=== PATIENT | female | born 1995 | race Two or more races ===

== ENCOUNTER 2018-08-19 10:37 | Emergency (ER) | payer SELFPAY ==
[~2018-08-19] VITALS: Ht 154.9 cm; Wt 52.2 kg
[2018-08-19] MEDS ORDERED: IV NORMAL SALINE 1000ML BAG 1,000 ML IV SCH (10:56)
[2018-08-19] MEDS ORDERED: fentaNYL PF VIAL 100 MCG/2 ML VIAL IV ONE (11:00)
[2018-08-19] MEDS ORDERED: MORPHINE SULFATE 2 MG/ML VIAL. IV/SQ PRN (11:00)
[2018-08-19] MEDS ORDERED: ONDANSETRON PF 4 MG/2 ML VIAL. IV ONE (11:00)
--- NOTE | 2018-08-19 11:04 | PHYS DOC ---
Adult General Chief Complaint Chief Complaint: ABDOMINAL PAIN HPI HPI Patient is a 22-year-old female who presents with complaint of right upper quadrant abdominal pain for the last couple of days. Patient reports that she does have some discomfort with urination and states the pain is worsened when she urinates. She states the pain radiates into her back. She is unable to quantify her pain other than to say it hurts a lot. She has had no vomiting or diarrhea. She also has had no fever. Review of Systems Review of Systems Constitutional: Denies fever or chills [] Respiratory: Denies cough or shortness of breath [] Cardiovascular: Denies chest pain[] GI: [place] of right upper quadrant abdominal pain[] : Complains of dysuria[] Musculoskeletal: Complains of right-sided back pain[] All other systems were reviewed and found to be within normal limits, except as documented in this note. Current Medications Current Medications Current Medications Medications (Trade) Dose Ordered Sig/Merary Start Time Stop Time Status Last Admin Dose Admin Ceftriaxone Sodium 50 ml @ 100 mls/hr 1X ONCE 08/19/18 12:00 08/19/18 12:29 DC 08/19/18 12:00 100 MLS/HR Fentanyl Citrate (Fentanyl 2ml Vial) 25 mcg 1X ONCE 08/19/18 11:00 08/19/18 11:25 DC 08/19/18 11:00 25 MCG Morphine Sulfate (Morphine Sulfate) 2 mg PRN Q15MIN PRN 08/19/18 11:00 08/20/18 10:59 08/19/18 11:43 2 MG Ondansetron HCl (Zofran) 4 mg 1X ONCE 08/19/18 11:00 08/19/18 11:25 DC 08/19/18 11:00 4 MG Sodium Chloride 1,000 ml @ 1,000 mls/hr Q1H 08/19/18 10:56 08/19/18 11:55 DC 08/19/18 10:56 1,000 MLS/HR Allergies Allergies Allergies Coded Allergies Type Severity Reaction Last Updated Verified No Known Drug Allergies 08/19/18 No Physical Exam Physical Exam Constitutional: Well developed, well nourished, appears uncomfortable. [] HENT: Normocephalic, atraumatic, bilateral external ears normal, oropharynx moist, no oral exudates, nose normal. [] Eyes: PERRLA, EOMI, conjunctiva normal, no discharge. [] Neck: Normal range of motion, no tenderness, supple, no stridor. [] Cardiovascular:Heart rate regular rhythm [] Lungs & Thorax: Bilateral breath sounds clear to auscultation [] Abdomen: Bowel sounds normal, soft, with moderate tenderness to palpation right upper quadrant. [] Skin: Warm, dry, no erythema, no rash. [] Back: There is right-sided CVA tenderness. [] Extremities: No tenderness, no cyanosis, no clubbing, ROM intact, no edema. [] Neurologic: Alert and oriented X 3, normal motor function, normal sensory function, no focal deficits noted. [] Current Patient Data Vital Signs Vital Signs Date Time Temp Pulse Resp B/P (MAP) Pulse Ox O2 Delivery O2 Flow Rate FiO2 08/19/18 12:47 60 16 108/75 (86) 100 Room Air 08/19/18 10:45 98.1 98.0 98.1 Lab Values Laboratory Tests Test 08/19/18 10:59 08/19/18 11:05 POC Urine HCG, Qualitative Hcg negative (Negative) White Blood Count 8.2 x10^3/uL (4.0-11.0) Red Blood Count 4.74 x10^6/uL (3.50-5.40) Hemoglobin 13.2 g/dL (12.0-15.5) Hematocrit 39.7 % (36.0-47.0) Mean Corpuscular Volume 84 fL (79-100) Mean Corpuscular Hemoglobin 28 pg (25-35) Mean Corpuscular Hemoglobin Concent 33 g/dL (31-37) Red Cell Distribution Width 15.4 % (11.5-14.5) H Platelet Count 258 x10^3/uL (140-400) Neutrophils (%) (Auto) 67 % (31-73) Lymphocytes (%) (Auto) 25 % (24-48) Monocytes (%) (Auto) 7 % (0-9) Eosinophils (%) (Auto) 1 % (0-3) Basophils (%) (Auto) 0 % (0-3) Neutrophils # (Auto) 5.5 x10^3uL (1.8-7.7) Lymphocytes # (Auto) 2.0 x10^3/uL (1.0-4.8) Monocytes # (Auto) 0.6 x10^3/uL (0.0-1.1) Eosinophils # (Auto) 0.1 x10^3/uL (0.0-0.7) Basophils # (Auto) 0.0 x10^3/uL (0.0-0.2) Urine Collection Type Unknown Urine Color Yellow Urine Clarity Clear Urine pH 6.0 Urine Specific [place] 1.020 Urine Protein Negative mg/dL (NEG-TRACE) Urine Glucose (UA) Negative mg/dL (NEG) Urine Ketones (Stick) Negative mg/dL (NEG) Urine Blood Moderate (NEG) Urine Nitrite Positive (NEG) Urine Bilirubin Negative (NEG) Urine Urobilinogen Dipstick 0.2 mg/dL (0.2 mg/dL) Urine Leukocyte Esterase Large (NEG) Urine RBC 3-5 /HPF (0-2) Urine WBC 11-20 /HPF (0-4) Urine Squamous Epithelial Cells Mod /LPF Urine Bacteria Many /HPF (0-FEW) Urine Mucus Mod /LPF Sodium Level 141 mmol/L (136-145) Potassium Level 3.7 mmol/L (3.5-5.1) Chloride Level 103 mmol/L (98-107) Carbon Dioxide Level 26 mmol/L (21-32) Anion Gap 12 (6-14) Blood Urea Nitrogen 10 mg/dL (7-20) Creatinine 0.6 mg/dL (0.6-1.0) Estimated GFR (Cockcroft-Gault) 126.2 BUN/Creatinine Ratio 17 (6-20) Glucose Level 83 mg/dL (70-99) Calcium Level 9.0 mg/dL (8.5-10.1) Total Bilirubin 0.5 mg/dL (0.2-1.0) Aspartate Amino Transferase (AST) 15 U/L (15-37) Alanine Aminotransferase (ALT) 19 U/L (14-59) Alkaline Phosphatase 72 U/L (46-116) Total Protein 8.2 g/dL (6.4-8.2) Albumin 4.2 g/dL (3.4-5.0) Albumin/Globulin Ratio 1.1 (1.0-1.7) Lipase 142 U/L (73-393) Laboratory Tests 08/19/18 11:05 Laboratory Tests 08/19/18 11:05 EKG EKG [] Radiology/Procedures Radiology/Procedures [] Impressions: Gallbladder ultrasound demonstrates no acute abnormalities. Report for CT abdomen and pelvis reviewed. Patient's abdomen reexamined and patient has no tenderness to palpation at McBurney's point. There is no rebound tenderness/ peritoneal signs. Course & Med Decision Making Course & Med Decision Making Pertinent Labs and Imaging studies reviewed. (See chart for details) [] Dragon Disclaimer Dragon Disclaimer This electronic medical record was generated, in whole or in part, using a voice recognition dictation system. Departure Departure Impression: Primary Impression: Urinary tract infection Disposition: HOME, SELF-CARE Condition: STABLE Patient Instructions: Urinary Tract Infection Scripts Tramadol Hcl (TRAMADOL HCL) 50 Mg Tablet 50 MG PO Q6HRS PRN for PAIN for 3 Days, #12 TAB Prov: CLARKE MCNEILL Jr. DO 08/19/18 Phenazopyridine Hcl (PHENAZOPYRIDINE HCL) 100 Mg Tablet 1 TAB PO TID, #9 TAB Prov: CLARKE MCNEILL Jr. DO 08/19/18 Ciprofloxacin Hcl (CIPRO) 500 Mg Tablet 1 TAB PO BID, #20 TAB Prov: CLARKE MCNEILL Jr. DO 08/19/18 Problem Qualifiers Primary Impression: Urinary tract infection Urinary tract infection type: site unspecified Hematuria presence: with hematuria Qualified Codes: N39.0 - Urinary tract infection, site not specified ; R31.9 - Hematuria, unspecified CLARKE MCNEILL Jr. DO Aug 19, 2018 11:04
[2018-08-19 11:11] LABS: BASO % 0 % (0-3); EOS # 0.1 x10^3/uL (0.0-0.7); EOS % 1 % (0-3); HEMATOCRIT 39.7 % (36.0-47.0); HEMOGLOBIN 13.2 g/dL (12.0-15.5); LYMPH % 25 % (24-48); MEAN CORPUSCULAR HEMOGLOBIN 28 pg (25-35); MEAN CORPUSCULAR HGB CONC 33 g/dL (31-37); MEAN CORPUSCULAR VOLUME 84 fL (79-100); MONO # 0.6 x10^3/uL (0.0-1.1); MONO % 7 % (0-9); NEUT # 5.5 x10^3uL (1.8-7.7); NEUT % 67 % (31-73); PLATELET COUNT 258 x10^3/uL (140-400); RED BLOOD COUNT 4.74 x10^6/uL (3.50-5.40); RED CELL DISTRIBUTION WIDTH 15.4 % (11.5-14.5); WHITE BLOOD COUNT 8.2 x10^3/uL (4.0-11.0)
[2018-08-19 11:12] LABS: BILIRUBIN,URINE NEGATIVE (NEG); CLARITY,URINE CLEAR; COLOR,URINE YELLOW; NITRITE,URINE POSITIVE (NEG); PROTEIN,URINE NEGATIVE (NEG-TRACE); UROBILINOGEN,URINE 0.2 mg/dL (0.2 mg/dL)
[2018-08-19 11:26] LABS: CREATININE 0.6 mg/dL (0.6-1.0); GFR 126.2; POTASSIUM 3.7 mmol/L (3.5-5.1)
[2018-08-19 11:28] LABS: BACTERIA,URINE MANY /HPF (0-FEW); SQUAMOUS EPITHELIAL CELL,UR MOD /LPF
[2018-08-19 11:31] LABS: ALBUMIN 4.2 g/dL (3.4-5.0); ALBUMIN/GLOBULIN RATIO 1.1 (1.0-1.7); TOTAL BILIRUBIN 0.5 mg/dL (0.2-1.0); TOTAL PROTEIN 8.2 g/dL (6.4-8.2)
--- NOTE | 2018-08-19 12:18 | RAD ---
ABDOMEN LTD History: Right upper quadrant abdominal pain Comparison: None. Findings: Multiple sonographic images of the abdomen are submitted. There is no abnormality of the visualized pancreas, tail not as well-visualized due to bowel gas. There is segmental visualization of the inferior vena cava. Abdominal aortic caliber is within normal limits up to 1.6 cm. Hepatic echotexture is within normal limits. Right lobe of the liver measured 15.3 cm longitudinal. Common bile duct is within normal limits at 0.4 cm. Gallbladder is present without intraluminal abnormality, wall thickening, pericholecystic fluid. Right kidney measured 10.9 x 3.6 x 5.3 cm, no hydronephrosis. No free fluid is demonstrated. Impression: 1. No significant abnormality is demonstrated. Electronically signed by: Montser Horton MD (08/19/2018 12:16 PM) [id number]
--- NOTE | 2018-08-19 13:07 | RAD ---
Examination: CT of the abdomen pelvis without contrast HISTORY: History of right upper quadrant pain with urination COMPARISON: None available TECHNIQUE: Axial CT images of the abdomen pelvis were performed without contrast. Coronal and sagittal reformats are performed Exposure: One or more of the following individualized dose reduction techniques were utilized for this examination: 1. Automated exposure control 2. Adjustment of the mA and/or kV according to patient size 3. Use of iterative reconstruction technique FINDINGS: Evaluation of the solid organs is limited lack of IV contrast. The evaluation of bowel is limited lack of oral contrast The bibasilar lungs are clear. No evidence of free air identified in the abdomen. The visualized noncontrasted liver, spleen, adrenals grossly appears unremarkable The gallbladder is mildly distended. The stomach is mildly distended. The visualized pancreas grossly appears unremarkable. The small bowel is nondilated. There is questionable mild fat stranding identified about the terminal ileum in the right lower quadrant. The partially visualized appendix appears unremarkable. The stranding appears to abut the appendix, however there is air within the appendix. Feces and gas noted in the colon. Urinary bladder is mildly distended. No evidence of intrarenal collecting system calculi or hydronephrosis. A small amount of free fluid identified in the pelvis. Prominent appearing left adnexa. No evidence of lytic bony destructive lesion. IMPRESSION: 1. No evidence of intrarenal collecting system calculi or hydronephrosis. 2. Questionable minimal fat stranding identified about the terminal ileum the right lower quadrant, nonspecific could be mild enteritis. The fat stranding appears to abut the appendix, however the appendix grossly appears unremarkable. 3. Prominent appearing left adnexa, evaluation limited without IV contrast. Ultrasound pelvis may be useful for further evaluation if this is a clinical concern. Electronically signed by: Kevin Padgett MD (08/19/2018 1:04 PM) [place] [id number]
[2018-08-19] MEDS ORDERED: PHEN-443 PO (13:26)
[2018-08-19] MEDS ORDERED: TRAM50TA PO (13:26)
[2018-08-19] MEDS ORDERED: CIPR500T94 PO (13:26)
[2018-08-19 13:49] VITALS: BP 106/70
== END 2018-08-19 13:49 | disposition home or self-care (01) ==
LOC: ER 10:37
DX: N39.0 Urinary tract infection, site not specified (principal); R31.9 Hematuria, unspecified; M54.9 Dorsalgia, unspecified; R10.11 Right upper quadrant pain
CPT/HCPCS: 36415; 74176; 76705; 80053; 81001; 81025; 83690; 85025; 96365; 96375; 99285; J0690; J2270; J2405; J3010; J7030

== ENCOUNTER 2019-05-19 19:30 | Emergency (ER) | payer SELFPAY ==
[~2019-05-19] VITALS: Ht 154.9 cm; Wt 50.8 kg
[~2019-05-19 19:30] MED LIST: CIPR500T94 PO; PHEN-443 PO; TRAM50TA PO
[2019-05-19 20:19] LABS: BILIRUBIN,URINE NEGATIVE (NEG); CLARITY,URINE CLEAR; COLOR,URINE YELLOW; NITRITE,URINE NEGATIVE (NEG); PROTEIN,URINE NEGATIVE (NEG-TRACE)
[2019-05-19 20:23] LABS: BASO % 1 % (0-3); EOS # 0.1 x10^3/uL (0.0-0.7); EOS % 1 % (0-3); HEMATOCRIT 37.8 % (36.0-47.0); HEMOGLOBIN 12.8 g/dL (12.0-15.5); LYMPH # 2.6 x10^3/uL (1.0-4.8); LYMPH % 37 % (24-48); MEAN CORPUSCULAR HEMOGLOBIN 30 pg (25-35); MEAN CORPUSCULAR HGB CONC 34 g/dL (31-37); MEAN CORPUSCULAR VOLUME 88 fL (79-100); MONO # 0.6 x10^3/uL (0.0-1.1); MONO % 9 % (0-9); NEUT # 3.7 x10^3/uL (1.8-7.7); NEUT % 53 % (31-73); PLATELET COUNT 229 x10^3/uL (140-400); RED BLOOD COUNT 4.29 x10^6/uL (3.50-5.40)
[2019-05-19 20:28] LABS: BACTERIA,URINE FEW /HPF (0-FEW); SQUAMOUS EPITHELIAL CELL,UR MANY /LPF; WBC,URINE OCC /HPF (0-4)
[2019-05-19 20:37] LABS: CALCIUM 8.8 mg/dL (8.5-10.1); CREATININE 0.5 mg/dL (0.6-1.0); GFR 154.3
[2019-05-19 20:43] LABS: ALBUMIN 4.1 g/dL (3.4-5.0); ALBUMIN/GLOBULIN RATIO 1.2 (1.0-1.7); TOTAL BILIRUBIN 0.4 mg/dL (0.2-1.0); TOTAL PROTEIN 7.5 g/dL (6.4-8.2)
--- NOTE | 2019-05-19 22:22 | RAD ---
Obstetrical ultrasound less than 14 weeks transabdominal and transvaginal imaging. HISTORY: Vaginal bleeding, Transabdominal ultrasound was performed. Bladder was not distended. Uterus is retroflexed. There is fluid in the endometrial canal but uterus is poorly evaluated. Right ovary may have been identified. Left ovary was not identified. Transvaginal imaging was performed for further evaluation. There is retroflexion of the uterus. There is fluid in the endometrial canal. Blood clots are most likely although retained products of conception are possible. A normal gestational sac is not identified. A yolk sac or pole was not identified. There is no uterine mass. Left ovary was normal measuring 2.6 x 3.3 x 1.6 cm. There is flow in the left ovary with color imaging and Doppler. There are small follicles in the left ovary. There is a small amount of free fluid in the cul-de-sac. Right ovary was normal measuring 2.6 x 2.6 x 1.1 cm. There are small follicles in the right ovary. IMPRESSION: 1. Normal ovaries. 2. Trace of free fluid in cul-de-sac. 3. No other adnexal mass noted. 4. Abnormal gestational sac versus blood products in the endometrium. A normal pole or yolk sac was not identified. Electronically signed by: Guillaume Friedman MD (05/19/2019 10:19 PM) [facility]
--- NOTE | 2019-05-19 22:50 | PHYS DOC ---
Past Medical History Past Medical History: No Pertinent History Past Surgical History: No Surgical History Alcohol Use: None Drug Use: None Adult General Chief Complaint Chief Complaint: ABDOMINAL PAIN IN HPI HPI 23-year-old female presents to ER for complaints of vaginal bleeding and lower abdominal cramping. Patient reports symptoms started this afternoon. Patient denies any fall, trauma, or recent sexual intercourse. She denies any dizziness or lightheadedness. Pt denies fever, nausea or vomiting, or urinary symptoms. Patient's LMP was 04/04/19. This makes her 3 para 2. Review of Systems Review of Systems Constitutional: Denies fever or chills [] Respiratory: Denies cough or shortness of breath [] Cardiovascular: No additional information not addressed in HPI [] GI: Denies nausea, vomiting, bloody stools or diarrhea. Reports mid suprapubic cramping : Denies dysuria. Reports vaginal bleeding Musculoskeletal: Denies back pain or joint pain [] Integument: Denies rash or skin lesions [] Neurologic: Denies headache, focal weakness or sensory changes [] All other systems were reviewed and found to be within normal limits, except as documented in this note. Allergies Allergies Allergies Coded Allergies Type Severity Reaction Last Updated Verified No Known Drug Allergies 08/19/18 No Physical Exam Physical Exam Constitutional: Well developed, well nourished, no acute distress, non-toxic appearance. [] HENT: Normocephalic, atraumatic, oropharynx moist, nose normal. [] Eyes: Pupils equal, conjunctiva normal, no discharge. [] Neck: Normal range of motion, no tenderness, supple, no stridor. [] Cardiovascular: Heart rate regular rhythm, no murmur [] Lungs & Thorax: Bilateral breath sounds clear to auscultation- resp. equal/nonlabored Abdomen: Bowel sounds normal, soft- no distention/rigidity, tender suprapubic ar ea, no masses, no pulsatile masses. [] Skin: Warm, dry, no erythema, no rash. [] Back: No tenderness, no CVA tenderness. [] Extremities: No tenderness, no cyanosis, no clubbing, ROM intact, no edema. [] Neurologic: Alert and oriented X 3, normal motor function, normal sensory function, no focal deficits noted. [] Psychologic: Affect normal, judgement normal, mood normal. [] Pelvic Exam: RN Sand Hauler present 2239 Abdomen: Tender mid suprapubic area- no distention/rigidity External Genitalia: Normal Skin- no rash/lesions Speculum: Normal vaginal mucosa, dark blood in vaginal vault no clots/tissue. Cervical os closed Current Patient Data Vital Signs Vital Signs Date Time Temp Pulse Resp B/P (MAP) Pulse Ox O2 Delivery O2 Flow Rate FiO2 05/19/19 23:13 78 114/70 (85) 98 Room Air 05/19/19 21:13 20 05/19/19 19:45 98.1 98.1 Lab Values Laboratory Tests Test 05/19/19 20:03 05/19/19 20:08 05/19/19 20:15 Urine Collection Type Unknown Urine Color Yellow Urine Clarity Clear Urine pH 6.0 Urine Specific [place] 1.025 Urine Protein Negative mg/dL (NEG-TRACE) Urine Glucose (UA) Negative mg/dL (NEG) Urine Ketones (Stick) Negative mg/dL (NEG) Urine Blood Large (NEG) Urine Nitrite Negative (NEG) Urine Bilirubin Negative (NEG) Urine Urobilinogen Dipstick 1.0 mg/dL (0.2 mg/dL) Urine Leukocyte Esterase Negative (NEG) Urine RBC 11-20 /HPF (0-2) Urine WBC Occ /HPF (0-4) Urine Squamous Epithelial Cells Many /LPF Urine Bacteria Few /HPF (0-FEW) Urine Mucus Marked /LPF POC Urine HCG, Qualitative Hcg positive (Negative) White Blood Count 7.0 x10^3/uL (4.0-11.0) Red Blood Count 4.29 x10^6/uL (3.50-5.40) Hemoglobin 12.8 g/dL (12.0-15.5) Hematocrit 37.8 % (36.0-47.0) Mean Corpuscular Volume 88 fL (79-100) Mean Corpuscular Hemoglobin 30 pg (25-35) Mean Corpuscular Hemoglobin Concent 34 g/dL (31-37) Red Cell Distribution Width 14.0 % (11.5-14.5) Platelet Count 229 x10^3/uL (140-400) Neutrophils (%) (Auto) 53 % (31-73) Lymphocytes (%) (Auto) 37 % (24-48) Monocytes (%) (Auto) 9 % (0-9) Eosinophils (%) (Auto) 1 % (0-3) Basophils (%) (Auto) 1 % (0-3) Neutrophils # (Auto) 3.7 x10^3/uL (1.8-7.7) Lymphocytes # (Auto) 2.6 x10^3/uL (1.0-4.8) Monocytes # (Auto) 0.6 x10^3/uL (0.0-1.1) Eosinophils # (Auto) 0.1 x10^3/uL (0.0-0.7) Basophils # (Auto) 0.0 x10^3/uL (0.0-0.2) Maternal Serum HCG Beta Subunit 511 mIU/mL (0-5) H Sodium Level 142 mmol/L (136-145) Potassium Level 4.0 mmol/L (3.5-5.1) Chloride Level 104 mmol/L (98-107) Carbon Dioxide Level 25 mmol/L (21-32) Anion Gap 13 (6-14) Blood Urea Nitrogen 10 mg/dL (7-20) Creatinine 0.5 mg/dL (0.6-1.0) L Estimated GFR (Cockcroft-Gault) 154.3 BUN/Creatinine Ratio 20 (6-20) Glucose Level 88 mg/dL (70-99) Calcium Level 8.8 mg/dL (8.5-10.1) Total Bilirubin 0.4 mg/dL (0.2-1.0) Aspartate Amino Transferase (AST) 19 U/L (15-37) Alanine Aminotransferase (ALT) 20 U/L (14-59) Alkaline Phosphatase 77 U/L (46-116) Total Protein 7.5 g/dL (6.4-8.2) Albumin 4.1 g/dL (3.4-5.0) Albumin/Globulin Ratio 1.2 (1.0-1.7) Laboratory Tests 05/19/19 20:15 Laboratory Tests 05/19/19 20:15 Microbiology 05/19/19 Wet Prep - Final, Complete EKG EKG [] Radiology/Procedures Radiology/Procedures PROCEDURE: OB <14 WKS W/TV Obstetrical ultrasound less than 14 weeks transabdominal and transvaginal imaging. HISTORY: Vaginal bleeding, Transabdominal ultrasound was performed. Bladder was not distended. Uterus is retroflexed. There is fluid in the endometrial canal but uterus is poorly evaluated. Right ovary may have been identified. Left ovary was not identified. Transvaginal imaging was performed for further evaluation. There is retroflexion of the uterus. There is fluid in the endometrial canal. Blood clots are most likely although retained products of conception are possible. A normal gestational sac is not identified. A yolk sac or pole was not identified. There is no uterine mass. Left ovary was normal measuring 2.6 x 3.3 x 1.6 cm. There is flow in the left ovary with color imaging and Doppler. There are small follicles in the left ovary. There is a small amount of free fluid in the cul-de-sac. Right ovary was normal measuring 2.6 x 2.6 x 1.1 cm. There are small follicles in the right ovary. IMPRESSION: 1. Normal ovaries. 2. Trace of free fluid in cul-de-sac. 3. No other adnexal mass noted. 4. Abnormal gestational sac versus blood products in the endometrium. A normal pole or yolk sac was not identified. Electronically signed by: Bharat Zavala MD (05/19/2019 10:19 PM) [facility] DICTATED and SIGNED BY: BHARAT ZAVALA MD DATE: 05/19/190 Course & Med Decision Making Course & Med Decision Making Pertinent Labs and Imaging studies reviewed. (See chart for details) Pt was evaluated in the ER for complaints of vaginal bleeding and having multiple home tests which were positive. On labs patient had hCG quantitative of 511. H&H was stable at 12.8/37.8. UA was negative for nitrates and leukocytes. Patient had O+ blood type so she was not a [place] candidate. OB ultrasound with report "Abnormal gestational sac versus blood products in the endometrium. A normal pole or yolk sac was not identified". On vaginal exam cervical os was closed- patient had small amount of dark red blood in vaginal vault no clots or tissue. Wet mount with clue cells. GC and chlamydia pending at time of discharge with patient voicing no concerns for STDs. Patient was advised of test results, strict vaginal/pelvic rest, and need for repeat hCG quantitative in 48 hours with her MEDICATION CARE MANAGER and/or returning to ER for recheck of level. Patient denies increased lower abdominal pain and has been nontoxic in appearance while in the ER. Vital signs were stable.Education provided on signs and symptoms to return to ER. Discharge instructions were discussed. Translation phone was used for communication during ER visit as patient spoke Cam[place]onian. Karina Disclaimer Karina Disclaimer This electronic medical record was generated, in whole or in part, using a voice recognition dictation system. Departure Departure Impression: Primary Impression: Additional Impressions: Threatened miscarriage in early Bacterial vaginosis Disposition: HOME, SELF-CARE Condition: STABLE Referrals: NO PCP (PCP) Patient Instructions: Bacterial Vaginosis, Threatened Miscarriage Additional Instructions: It is important for you to have your level rechecked in 48 hours. Call your MEDICATION CARE MANAGER office and inform them that you were in the emergency department for vaginal bleeding and the ear need this rechecked. Your HCG quantitative ( level) was 511. No sexual intercourse or insertion of anything in your vagina until follow-up w ith your MEDICATION CARE MANAGER doctor. Drink plenty of water daily. Plenty of rest. Tylenol as directed on container for pain. Scripts Metronidazole (FLAGYL) 500 Mg Tablet 1 TAB PO BID, #14 TAB 0 Refills Prov: CATHERINE TRACY APRN 05/19/19 Problem Qualifiers CATHERINE TRACY APRN May 19, 2019 22:50
[2019-05-19] MEDS ORDERED: METR500T PO (23:01)
[2019-05-19 23:13] VITALS: BP 114/70
[2019-05-22 18:09] LABS: GC PROBE Negative (Negative)
[2019-05-24] MEDS ORDERED: OXYC1TAB15 PO (09:34)
[2019-05-24] MEDS ORDERED: NAPR-514 PO (09:34)
== END 2019-05-19 23:10 | disposition home or self-care (01) ==
LOC: ER 19:30
DX: O20.0 Threatened abortion (principal); O23.591 Infection of other part of genital tract in pregnancy, first trimester; B96.89 Other specified bacterial agents as the cause of diseases classified elsewhere; Z3A.00 Weeks of gestation of pregnancy not specified
CPT/HCPCS: 36415; 76801; 76817; 80053; 81001; 81025; 84702; 85025; 86900; 86901; 87491; 87591; 99285; Q0111

== ENCOUNTER 2021-06-04 15:16 | Emergency (ER) | payer SELFPAY ==
[~2021-06-04] VITALS: Ht 157.5 cm; Wt 54.0 kg
[~2021-06-04 15:16] MED LIST changes: +METR500T PO; +NAPR-514 PO; +OXYC1TAB15 PO
[2021-06-04 18:26] VITALS: BP 118/76
--- NOTE | 2021-06-04 18:32 | ED.ADGEN ---
Past Medical History Past Medical History: No Pertinent History Past Surgical History: No Surgical History Smoking Status: Never Smoker Alcohol Use: None Drug Use: None General Adult EDM: Chief Complaint: ABDOMINAL PAIN HPI: HPI: Patient is a 25 year old 25-year-old female coming in for left upper quadrant and epigastric abdominal pain. Patient states pain is worse with moving. Was seen in the clinic and given omeprazole but is not helping. Patient states is worse when she eats and has been having vomiting after eating. Patient denies any constipation or diarrhea. She denies any past medical history, medical surgical history of ectopic 2 years ago. Denies any tobacco, alcohol, or drugs. LMP 722. Patient has not received any Covid 19 vaccination. Review of Systems: Review of Systems: All other systems within normal limits except for as noted in the HPI Current Medications: Current Medications Medications (Trade) Dose Ordered Sig/Merary Start Time Stop Time Status Last Admin Dose Admin Info (CONTRAST GIVEN -- Rx MONITORING) 1 each PRN DAILY PRN 06/04/21 19:45 06/06/21 19:44 Iohexol (Omnipaque 300 Mg/ml) 75 ml 1X ONCE 06/04/21 19:30 06/04/21 19:31 DC 06/04/21 19:36 75 ML Multi-Ingredient Mouthwash/Gargle (Gi Cocktail) 20 ml 1X ONCE 06/04/21 18:45 06/04/21 18:46 DC 06/04/21 18:45 20 ML Ondansetron HCl (Zofran Odt) 4 mg 1X ONCE 06/04/21 19:45 06/04/21 19:46 DC 06/04/21 18:45 4 MG Allergies: Allergies: Allergies Coded Allergies Type Severity Reaction Last Updated Verified No Known Drug Allergies 08/19/18 No Physical Exam: PE: Constitutional: Well developed, well nourished, no acute distress, non-toxic appearance. [] HENT: Normocephalic, atraumatic, bilateral external ears normal, nose normal. [] Eyes: PERRLA, conjunctiva normal, no discharge. [] Neck: No rigidity, supple, no stridor. [] Cardiovascular: Regular rate and rhythm, brisk cap refill [] Lungs & Thorax: Non labored symmetric respirations, no tachypnea or respiratory distress [] Abdomen: Soft, nondistended, epigastric and left upper quadrant tenderness, no guarding or rebound. Skin: Warm, dry, no erythema, no rash. [] Back: Unremarkable Extremities: No deformities, range of motion grossly intact, no lower extremity edema [] Neurologic: Alert and oriented X 3, no focal deficits noted. [] Psychologic: Affect normal, judgement normal, mood normal. [] Current Patient Data: Labs: Laboratory Tests Test 06/04/21 18:30 06/04/21 18:32 06/04/21 18:52 Urine Collection Type Unknown Urine Color Yellow Urine Clarity Cloudy Urine pH 6.0 (<5.0-8.0) Urine Specific Salix >=1.030 (1.000-1.030) Urine Protein Negative mg/dL (NEG-TRACE) Urine Glucose (UA) Negative mg/dL (NEG) Urine Ketones (Stick) Negative mg/dL (NEG) Urine Blood Moderate (NEG) Urine Nitrite Negative (NEG) Urine Bilirubin Negative (NEG) Urine Urobilinogen Dipstick 1.0 mg/dL (0.2 mg/dL) Urine Leukocyte Esterase Moderate (NEG) Urine RBC 6-10 /HPF (0-2) Urine WBC >40 /HPF (0-4) Urine Squamous Epithelial Cells Many /LPF Urine Bacteria Moderate /HPF (0-FEW) Urine Mucus Marked /LPF POC Urine HCG, Qualitative Hcg negative (Negative) White Blood Count 8.1 x10^3/uL (4.0-11.0) Red Blood Count 4.53 x10^6/uL (3.50-5.40) Hemoglobin 13.5 g/dL (12.0-15.5) Hematocrit 39.4 % (36.0-47.0) Mean Corpuscular Volume 87 fL (79-100) Mean Corpuscular Hemoglobin 30 pg (25-35) Mean Corpuscular Hemoglobin Concent 34 g/dL (31-37) Red Cell Distribution Width 13.9 % (11.5-14.5) Platelet Count 272 x10^3/uL (140-400) Neutrophils (%) (Auto) 58 % (31-73) Lymphocytes (%) (Auto) 32 % (24-48) Monocytes (%) (Auto) 9 % (0-9) Eosinophils (%) (Auto) 1 % (0-3) Basophils (%) (Auto) 1 % (0-3) Neutrophils # (Auto) 4.7 x10^3/uL (1.8-7.7) Lymphocytes # (Auto) 2.6 x10^3/uL (1.0-4.8) Monocytes # (Auto) 0.7 x10^3/uL (0.0-1.1) Eosinophils # (Auto) 0.1 x10^3/uL (0.0-0.7) Basophils # (Auto) 0.0 x10^3/uL (0.0-0.2) Sodium Level 137 mmol/L (136-145) Potassium Level 3.9 mmol/L (3.5-5.1) Chloride Level 101 mmol/L (98-107) Carbon Dioxide Level 30 mmol/L (21-32) Anion Gap 6 (6-14) Blood Urea Nitrogen 10 mg/dL (7-20) Creatinine 0.6 mg/dL (0.6-1.0) Estimated GFR (Cockcroft-Gault) 122.8 BUN/Creatinine Ratio 17 (6-20) Glucose Level 84 mg/dL (70-99) Calcium Level 8.7 mg/dL (8.5-10.1) Total Bilirubin 0.4 mg/dL (0.2-1.0) Aspartate Amino Transferase (AST) 13 U/L (15-37) L Alanine Aminotransferase (ALT) 24 U/L (14-59) Alkaline Phosphatase 116 U/L (46-116) Total Protein 7.6 g/dL (6.4-8.2) Albumin 3.8 g/dL (3.4-5.0) Albumin/Globulin Ratio 1.0 (1.0-1.7) Lipase 243 U/L (73-393) Laboratory Tests 06/04/21 18:52 Laboratory Tests 06/04/21 18:52 Vital Signs: Vital Signs Date Time Temp Pulse Resp B/P (MAP) Pulse Ox O2 Delivery O2 Flow Rate FiO2 06/04/21 18:26 98.1 68 12 118/76 (72) 99 Room Air 98.1 EKG: EKG: [] Heart Score: C/O Chest Pain: No Risk Factors: Risk Factors: DM, Current or recent (<one month) smoker, HTN, HLP, family history of CAD, obesity. Risk Scores: Score 0 - 3: 2.5% MACE over next 6 weeks - Discharge Home Score 4 - 6: 20.3% MACE over next 6 weeks - Admit for Clinical Observation Score 7 - 10: 72.7% MACE over next 6 weeks - Early Invasive Strategies Radiology/Procedures: Radiology/Procedures: [facility] [address] [place] [address] IMAGING REPORT Signed PATIENT: NINA TREVIZO MACCOUNT: [id number] : 04/09/1996 LOCATION: ER AGE: 25 SEX: F EXAM STATUS: REG ER ORD. PHYSICIAN: KIRK LOPEZ MD REASON: LUQ, epigastric pain PROCEDURE: CT ABD PELV W/ IV CONTRST ONLY Exam: CT of abdomen and pelvis with contrast INDICATION: Left upper quadrant epigastric pain TECHNIQUE: Sequential axial images through the abdomen and pelvis obtained following the administration of 75 mL of Omni 300 IV contrast. Sagittal and coronal reformatted images were reconstructed from the axial data and reviewed. Exposure: One or more of the following in the visualized dose reduction techniq ues were utilized for this examination: 1. Automated exposure control 2. Adjustment of the MA and/or KV according to patient size 3. Use of iterative of reconstructive technique Comparisons: 08/19/2028 FINDINGS: Heart size is normal. No pericardial effusion. Visualized lung bases are clear. No pleural effusion. Liver, spleen, pancreas, gallbladder and adrenals are unremarkable. No perinephric inflammation or hydronephrosis. No renal or ureteral calculi are identified. Bladder is decompressed not well defined. Uterus is nonenlarged. No abnormal adnexal. Large and small bowel are unremarkable. Appendix is normal. No free intra- abdominal air or fluid. No obstruction. Abdominal aorta has a normal course and caliber. Abdominal vasculature is patent. No enlarged intra-abdominal lymph nodes are identified. No suspicious osseous lesions or acute fractures. IMPRESSION: No acute process identified within the abdomen or pelvis. Electronically signed by: Torrey Bernstein MD (06/04/2021 8:01 PM) [facility] DICTATED and SIGNED BY: TORREY BERNSTEIN MD DATE: 06/04/21 [id number] [] Course & Med Decision Making: Course & Med Decision Making Pertinent Labs and Imaging studies reviewed. (See chart for details) [] Karina Disclaimer: Karina Disclaimer: This electronic medical record was generated, in whole or in part, using a voice recognition dictation system. Departure Departure Impression: Primary Impression: UTI (urinary tract infection) Disposition: HOME / SELF CARE / HOMELESS Condition: STABLE Referrals: NO PCP (PCP) Patient Instructions: Urinary Tract Infection Scripts Cephalexin (CEPHALEXIN) 500 Mg Tablet 1 TAB PO TID for antibiotico for 5 Days, #15 TAB Prov: KIRK LOPEZ MD 06/04/21 KIRK LOPEZ MD Jun 04, 2021 18:32
[2021-06-04 18:39] LABS: BILIRUBIN,URINE NEGATIVE (NEG); CLARITY,URINE CLOUDY; COLOR,URINE YELLOW; NITRITE,URINE NEGATIVE (NEG); PROTEIN,URINE NEGATIVE (NEG-TRACE)
[2021-06-04] MEDS ORDERED: LIDO:MAALOX 1:1 20 ML SINGLE DOSE. SWSW ONE (18:45)
[2021-06-04 18:48] LABS: BACTERIA,URINE MODERATE /HPF (0-FEW); WBC,URINE >40 /HPF (0-4)
[2021-06-04 18:58] LABS: BASO % 1 % (0-3); EOS # 0.1 x10^3/uL (0.0-0.7); EOS % 1 % (0-3); HEMATOCRIT 39.4 % (36.0-47.0); HEMOGLOBIN 13.5 g/dL (12.0-15.5); LYMPH # 2.6 x10^3/uL (1.0-4.8); LYMPH % 32 % (24-48); MEAN CORPUSCULAR HEMOGLOBIN 30 pg (25-35); MEAN CORPUSCULAR HGB CONC 34 g/dL (31-37); MEAN CORPUSCULAR VOLUME 87 fL (79-100); MONO # 0.7 x10^3/uL (0.0-1.1); MONO % 9 % (0-9); NEUT # 4.7 x10^3/uL (1.8-7.7); NEUT % 58 % (31-73); PLATELET COUNT 272 x10^3/uL (140-400); RED BLOOD COUNT 4.53 x10^6/uL (3.50-5.40); RED CELL DISTRIBUTION WIDTH 13.9 % (11.5-14.5); WHITE BLOOD COUNT 8.1 x10^3/uL (4.0-11.0)
[2021-06-04 19:15] LABS: CALCIUM 8.7 mg/dL (8.5-10.1); CREATININE 0.6 mg/dL (0.6-1.0); GFR 122.8; POTASSIUM 3.9 mmol/L (3.5-5.1)
[2021-06-04 19:21] LABS: ALBUMIN 3.8 g/dL (3.4-5.0); TOTAL BILIRUBIN 0.4 mg/dL (0.2-1.0); TOTAL PROTEIN 7.6 g/dL (6.4-8.2)
[2021-06-04] MEDS ORDERED: IOHEXOL 300 MG/ML 100ML VIAL. IV ONE (19:30)
[2021-06-04] MEDS ORDERED: CONTRAST GIVEN. MC PRN (19:45)
[2021-06-04] MEDS ORDERED: ONDANSETRON ODT 4 MG TAB.RAPDIS. PO ONE (19:45)
--- NOTE | 2021-06-04 20:04 | RAD ---
Exam: CT of abdomen and pelvis with contrast INDICATION: Left upper quadrant epigastric pain TECHNIQUE: Sequential axial images through the abdomen and pelvis obtained following the administrati on of 75 mL of Omni 300 IV contrast. Sagittal and coronal reformatted images were reconstructed from the axial data and reviewed. Exposure: One or more of the following in the visualized dose reduction techniques were utilized for this examination: 1. Automated exposure control 2. Adjustment of the MA and/or KV according to patient size 3. Use of iterative of reconstructive technique Comparisons: 08/19/2028 FINDINGS: Heart size is normal. No pericardial effusion. Visualized lung bases are clear. No pleural effusion. Liver, spleen, pancreas, gallbladder and adrenals are unremarkable. No perinephric inflammation or hydronephrosis. No renal or ureteral calculi are identified. Bladder is decompressed not well defined. Uterus is nonenlarged. No abnormal adnexal. Large and small bowel are unremarkable. Appendix is normal. No free intra-abdominal air or fluid. No obstruction. Abdominal aorta has a normal course and caliber. Abdominal vasculature is patent. No enlarged intra-abdominal lymph nodes are identified. No suspicious osseous lesions or acute fractures. IMPRESSION: No acute process identified within the abdomen or pelvis. Electronically signed by: Torrey Bernstein MD (06/04/2021 8:01 PM) [facility]
[2021-06-04] MEDS ORDERED: CEPHALEXIN 250 MG CAPSULE. PO STA (20:08)
[2021-06-04] MEDS ORDERED: CEPH500T PO (20:13)
[2021-06-04] MEDS ORDERED: KETOROLAC 15 MG/ML VIAL. IVP ONE (20:15)
[2021-06-04] MEDS ORDERED: KETOROLAC 15 MG/ML VIAL. ONE (20:19)
== END 2021-06-04 20:26 | disposition home or self-care (01) ==
LOC: ER 15:16
DX: N39.0 Urinary tract infection, site not specified (principal)
CPT/HCPCS: 36415; 74177; 80053; 81001; 81025; 83690; 85025; 87086; 96374; 99285; J1885; Q9967